=== PATIENT | male | born 1985 | race Caucasian/White ===

== ENCOUNTER → 2024-03-23 16:03 | Outpatient (REF) | payer OTHER, SELFPAY | LOC: HWRAD 16:03 | PROVIDERS: ATTENDING PHYSICIAN Nurse Practitioner Family | DX: M25.561 Pain in right knee (principal) | CPT/HCPCS: 73564 ==

== ENCOUNTER → 2024-05-28 09:23 | Outpatient (REF) | payer OTHER, SELFPAY | LOC: MRI 3T 09:23 | PROVIDERS: ATTENDING PHYSICIAN Nurse Practitioner Family | DX: M25.561 Pain in right knee (principal) | CPT/HCPCS: 73721 ==